=== PATIENT | female | born 1955 | race African-American/Black ===

== ENCOUNTER 2016-08-25 17:50 | Inpatient (IN) | payer MEDICAID, OTHER ==
[~2016-08-25] VITALS: Ht 165.1 cm; Wt 83.0 kg
[~2016-08-25 17:50] MED LIST: IOHEXOL-300 100 ML BOTTLE ONE; SODIUM CHLORIDE 0.9% 10ML VIAL ONE
[2016-08-25] MEDS ORDERED: LORA0.5T2 PO (17:56)
[2016-08-25] MEDS ORDERED: ONDANSETRON HCL 4MG/2ML VIAL IV STA (18:11)
[2016-08-25] MEDS ORDERED: SODIUM CHLORIDE 0.9% 1,000 ML IV ONE (18:11)
[2016-08-25] MEDS ORDERED: FAMOTIDINE 20MG/2ML VIAL IV STA (18:11)
[2016-08-25 19:09] LABS: BASOPHILS % 0.6 % (0.0-2.0); EOSINOPHILS % 0.1 % (0.0-5.0); HEMATOCRIT. 45.4 % (36.0-48.0); HEMOGLOBIN. 15.1 g/dL (12.0-16.0); LYMPHOCYTES % 26.5 % (20.0-50.0); MEAN CORPUSCULAR HEMOGLOBIN 28.4 pg (28.0-32.0); MEAN CORPUSCULAR VOLUME 85.8 fL (81.0-99.0); MEAN PLATELET VOLUME 7.2 fl (7.4-10.4); MONOCYTES % 5.6 % (2.0-8.0); NEUTROPHILS % 67.2 % (40.0-76.0); PLATELET 337 x1000/uL (130-400); RED CELL DISTRIBUTION WIDTH 13.9 % (11.6-14.6)
[2016-08-25 19:15] LABS: INR 1.1; PROTHROMBIN TIME 11.5 sec
[2016-08-25 19:24] LABS: CARBON DIOXIDE 29 mEq/L (21-32); CHLORIDE 102 mEq/L (98-107); TROPONIN I < 0.02 ng/mL (0.00-0.04)
[2016-08-25 19:40] LABS: CLARITY URINE CLEAR (CLEAR); COLOR URINE YELLOW (YELLOW); GLUCOSE URINE NEGATIVE (NEGATIVE); KETONES URINE NEGATIVE (NEGATIVE); LEUKOCYTE ESTERASE URINE NEGATIVE (NEGATIVE); NITRITE URINE NEGATIVE (NEGATIVE); OCCULT BLOOD URINE NEGATIVE (NEGATIVE); PROTEIN URINE NEGATIVE (NEGATIVE); SPECIFIC GRAVITY URINE 1.011 (1.005-1.030)
[2016-08-25] MEDS ORDERED: KETOROLAC 30MG/ML VIAL IV ONE (21:15)
[2016-08-25 22:45] VITALS: BP 120/86
[2016-08-25] MEDS ORDERED: LOSA1TAB33 PO (23:18)
[2016-08-25] MEDS ORDERED: CYCL5TAB PO (23:18)
[2016-08-25] MEDS ORDERED: AMLO10TA80 PO (23:18)
[2016-08-25] MEDS ORDERED: OMEP40CA34 PO (23:18)
[2016-08-25 23:23] VITALS: BP 120/86
[2016-08-26] VITALS: BP 123/84
[2016-08-26] MEDS ORDERED: ZOLPIDEM TARTRATE 5MG TABLET PO PRN (00:30)
[2016-08-26] MEDS ORDERED: HYDROCODONE/ACETAMINOPHEN 5/325MG TABLET PO PRN (00:30)
[2016-08-26] MEDS ORDERED: CLONIDINE 0.2MG TABLET PO PRN (00:30)
[2016-08-26] MEDS ORDERED: LORAZEPAM 0.5MG TABLET PO PRN (00:30)
[2016-08-26] MEDS: SODIUM CHLORIDE 0.45% 1,000 ML IV SCH ×3 (01:18→20:13)
[2016-08-26 03:43] LABS: BASOPHILS % 0.8 % (0.0-2.0); EOSINOPHILS % 0.5 % (0.0-5.0); HEMATOCRIT. 40.1 % (36.0-48.0); HEMOGLOBIN. 13.3 g/dL (12.0-16.0); LYMPHOCYTES % 34.6 % (20.0-50.0); MEAN CORPUSCULAR HEMOGLOBIN 28.4 pg (28.0-32.0); MEAN CORPUSCULAR VOLUME 85.5 fL (81.0-99.0); MEAN PLATELET VOLUME 7.2 fl (7.4-10.4); MONOCYTES % 9.4 % (2.0-8.0); NEUTROPHILS % 54.7 % (40.0-76.0); PLATELET 286 x1000/uL (130-400); RED BLOOD CELL COUNT 4.69 mill/uL (4.2-5.4); RED CELL DISTRIBUTION WIDTH 13.6 % (11.6-14.6)
[2016-08-26 03:51] LABS: CARBON DIOXIDE 27 mEq/L (21-32); CHLORIDE 105 mEq/L (98-107)
[2016-08-26 04:00] VITALS: BP 154/94
[2016-08-26] MEDS: HYDROMORPHONE HCL/PF 2MG/ML CPJ IV PRN ×5 (04:40→23:01)
[2016-08-26] MEDS: OMEPRAZOLE 20MG CAPSULE EXTENDED RELEASE PO SCH (05:52)
[2016-08-26] MEDS: CYCLOBENZAPRINE 10MG TABLET PO SCH ×2 (07:32→09:00)
[2016-08-26] MEDS: ONDANSETRON HCL 4MG/2ML VIAL IV PRN (07:36)
[2016-08-26 08:39] VITALS: BP 119/78
[2016-08-26] MEDS: ENOXAPARIN 30MG/0.3ML SYR SUBCUT SCH ×2 (09:00→20:13)
[2016-08-26] MEDS: ASPIRIN 81MG TABLET PO SCH (09:00)
[2016-08-26] MEDS: LOSARTAN POTASSIUM 100 MG TABLET PO SCH (09:00)
[2016-08-26] MEDS: AMLODIPINE 10MG TABLET PO SCH (09:00)
[2016-08-26] MEDS: HYDROCHLOROTHIAZIDE 12.5MG CAPSULE PO SCH (09:00)
[2016-08-26] MEDS ORDERED: MEDICATION NOT ON FORMULARY EA (Cyclobenzaprine Hcl 10 MG) PO SCH (09:00)
[2016-08-26] MEDS ORDERED: MEDICATION NOT ON FORMULARY EA (Omeprazole 1 CAP) PO SCH (09:00)
[2016-08-26 12:00] VITALS: BP 126/96
[2016-08-26] MEDS ORDERED: PANTOPRAZOLE SODIUM 40 MG/VIAL IV SCH (12:30)
[2016-08-26 16:24] VITALS: BP 111/76
[2016-08-26] MEDS: POTASSIUM CHLORIDE 20MEQ/PACKET PO NR ×2 (19:15→20:12)
[2016-08-26 20:00] VITALS: BP 106/75
[2016-08-27] VITALS: BP 97/64
[2016-08-27] MEDS: SODIUM CHLORIDE 0.45% 1,000 ML IV SCH ×2 (03:07→16:53)
[2016-08-27] MEDS: HYDROMORPHONE HCL/PF 2MG/ML CPJ IV PRN ×5 (03:38→21:53)
[2016-08-27 04:00] VITALS: BP 147/97
[2016-08-27] MEDS: OMEPRAZOLE 20MG CAPSULE EXTENDED RELEASE PO SCH (05:38)
[2016-08-27 06:11] LABS: BASOPHILS % 0.8 % (0.0-2.0); EOSINOPHILS % 0.5 % (0.0-5.0); HEMOGLOBIN. 13.4 g/dL (12.0-16.0); LYMPHOCYTES % 25.7 % (20.0-50.0); MEAN CORPUSCULAR HEMOGLOBIN 28.7 pg (28.0-32.0); MEAN CORPUSCULAR VOLUME 85.8 fL (81.0-99.0); MEAN PLATELET VOLUME 7.4 fl (7.4-10.4); MONOCYTES % 10.3 % (2.0-8.0); NEUTROPHILS % 62.7 % (40.0-76.0); PLATELET 275 x1000/uL (130-400); RED BLOOD CELL COUNT 4.67 mill/uL (4.2-5.4); RED CELL DISTRIBUTION WIDTH 13.6 % (11.6-14.6)
[2016-08-27 06:37] LABS: CARBON DIOXIDE 26 mEq/L (21-32); CHLORIDE 103 mEq/L (98-107)
[2016-08-27 08:00] VITALS: BP 121/85
[2016-08-27] MEDS ORDERED: POTASSIUM CHLORIDE 20MEQ TABLET SR PO NR ×2 (08:50→09:30)
[2016-08-27] MEDS: CYCLOBENZAPRINE 10MG TABLET PO SCH (09:00)
[2016-08-27] MEDS: ENOXAPARIN 30MG/0.3ML SYR SUBCUT SCH ×2 (09:00→21:00)
[2016-08-27] MEDS: LOSARTAN POTASSIUM 100 MG TABLET PO SCH (09:00)
[2016-08-27] MEDS: AMLODIPINE 10MG TABLET PO SCH (09:00)
[2016-08-27] MEDS: HYDROCHLOROTHIAZIDE 12.5MG CAPSULE PO SCH (09:00)
[2016-08-27] MEDS: ASPIRIN 81MG TABLET PO SCH (09:20)
[2016-08-27] MEDS: ONDANSETRON HCL 4MG/2ML VIAL IV PRN (09:21)
[2016-08-27] MEDS ORDERED: AMLO10TA80 PO (11:43)
[2016-08-27 12:00] VITALS: BP 113/84
[2016-08-27 20:00] VITALS: BP 121/78
[2016-08-28] VITALS: BP 141/92
[2016-08-28] MEDS: HYDROMORPHONE HCL/PF 2MG/ML CPJ IV PRN ×6 (02:55→23:23)
[2016-08-28] MEDS: SODIUM CHLORIDE 0.45% 1,000 ML IV SCH ×3 (03:02→23:00)
[2016-08-28 04:00] VITALS: BP 113/81
[2016-08-28] MEDS: OMEPRAZOLE 20MG CAPSULE EXTENDED RELEASE PO SCH (05:53)
[2016-08-28] MEDS: ACETAMINOPHEN 325MG TABLET PO PRN (05:53)
[2016-08-28 06:52] LABS: BASOPHILS % 0.4 % (0.0-2.0); EOSINOPHILS % 0.3 % (0.0-5.0); HEMOGLOBIN. 13.1 g/dL (12.0-16.0); LYMPHOCYTES % 20.8 % (20.0-50.0); MEAN CORPUSCULAR HEMOGLOBIN 28.6 pg (28.0-32.0); MEAN CORPUSCULAR VOLUME 84.7 fL (81.0-99.0); MEAN PLATELET VOLUME 7.6 fl (7.4-10.4); MONOCYTES % 11.7 % (2.0-8.0); NEUTROPHILS % 66.8 % (40.0-76.0); PLATELET 283 x1000/uL (130-400); RED CELL DISTRIBUTION WIDTH 13.4 % (11.6-14.6)
[2016-08-28 07:26] LABS: CARBON DIOXIDE 25 mEq/L (21-32); CHLORIDE 101 mEq/L (98-107)
[2016-08-28 08:00] VITALS: BP 128/88
[2016-08-28] MEDS: AMLODIPINE 10MG TABLET PO SCH (09:00)
[2016-08-28] MEDS: ENOXAPARIN 30MG/0.3ML SYR SUBCUT SCH (09:00)
[2016-08-28] MEDS: CYCLOBENZAPRINE 10MG TABLET PO SCH (09:00)
[2016-08-28] MEDS: LOSARTAN POTASSIUM 100 MG TABLET PO SCH (09:00)
[2016-08-28] MEDS: HYDROCHLOROTHIAZIDE 12.5MG CAPSULE PO SCH (09:00)
[2016-08-28] MEDS: ASPIRIN 81MG TABLET PO SCH (09:27)
[2016-08-28] MEDS: METRONIDAZOLE 500 MG PREMIX 100 ML IV SCH ×2 (10:38→18:40)
[2016-08-28] MEDS: LEVOFLOXACIN 500MG PREMIX 100 ML IV SCH (11:47)
[2016-08-28 12:00] VITALS: BP 110/64
[2016-08-28 16:00] VITALS: BP 120/79
[2016-08-28 20:45] VITALS: BP 121/81
[2016-08-29] VITALS (8 sets, daily range): BP systolic 106–168; BP diastolic 71–95
[2016-08-29] MEDS: METRONIDAZOLE 500 MG PREMIX 100 ML IV SCH ×3 (01:33→17:12)
[2016-08-29] MEDS: HYDROMORPHONE HCL/PF 2MG/ML CPJ IV PRN ×5 (03:30→21:13)
[2016-08-29] MEDS: OMEPRAZOLE 20MG CAPSULE EXTENDED RELEASE PO SCH (06:11)
[2016-08-29] MEDS: SODIUM CHLORIDE 0.45% 1,000 ML IV SCH ×2 (06:20→18:31)
[2016-08-29] MEDS: CYCLOBENZAPRINE 10MG TABLET PO SCH (08:11)
[2016-08-29] MEDS: ASPIRIN 81MG TABLET PO SCH (08:11)
[2016-08-29] MEDS: LOSARTAN POTASSIUM 100 MG TABLET PO SCH (08:11)
[2016-08-29] MEDS: HYDROCHLOROTHIAZIDE 12.5MG CAPSULE PO SCH (08:12)
[2016-08-29] MEDS: AMLODIPINE 10MG TABLET PO SCH (08:12)
[2016-08-29] MEDS: ENOXAPARIN 40MG/0.4ML SYR SUBCUT SCH (08:12)
[2016-08-29] MEDS: LEVOFLOXACIN 500MG PREMIX 100 ML IV SCH (11:26)
[2016-08-30] MEDS: METRONIDAZOLE 500 MG PREMIX 100 ML IV SCH ×3 (02:08→18:05)
[2016-08-30] MEDS: HYDROMORPHONE HCL/PF 2MG/ML CPJ IV PRN ×5 (02:09→23:59)
[2016-08-30 04:00] VITALS: BP 128/81
[2016-08-30] MEDS: OMEPRAZOLE 20MG CAPSULE EXTENDED RELEASE PO SCH (06:15)
[2016-08-30] MEDS: SODIUM CHLORIDE 0.45% 1,000 ML IV SCH (08:01)
[2016-08-30 08:26] VITALS: BP 115/72
[2016-08-30] MEDS: ASPIRIN 81MG TABLET PO SCH (09:00)
[2016-08-30] MEDS: ENOXAPARIN 40MG/0.4ML SYR SUBCUT SCH (09:00)
[2016-08-30] MEDS: HYDROCHLOROTHIAZIDE 12.5MG CAPSULE PO SCH (09:00)
[2016-08-30] MEDS: CYCLOBENZAPRINE 10MG TABLET PO SCH (09:00)
[2016-08-30] MEDS: LOSARTAN POTASSIUM 100 MG TABLET PO SCH (09:00)
[2016-08-30] MEDS: AMLODIPINE 10MG TABLET PO SCH (09:00)
[2016-08-30] MEDS ORDERED: DIATR MEGLU/DIATRIZOATE SOLN 30ML ONE (12:51)
[2016-08-30] MEDS: ONDANSETRON HCL 4MG/2ML VIAL IV PRN (15:46)
[2016-08-30] MEDS: LEVOFLOXACIN 500MG PREMIX 100 ML IV SCH (15:50)
[2016-08-30 16:40] VITALS: BP 138/75
[2016-08-30 20:00] VITALS: BP 126/83
[2016-08-30] MEDS: ACETAMINOPHEN 325MG TABLET PO PRN (23:51)
[2016-08-31] VITALS: BP 127/86
[2016-08-31] MEDS: METRONIDAZOLE 500 MG PREMIX 100 ML IV SCH (01:20)
[2016-08-31] MEDS: SODIUM CHLORIDE 0.45% 1,000 ML IV SCH (01:21)
[2016-08-31 04:00] VITALS: BP 124/86
[2016-08-31] MEDS ORDERED: LACTULOSE 20G/30ML UDC PO NR (06:00)
[2016-08-31 06:14] VITALS: BP 138/88
[2016-08-31] MEDS: OMEPRAZOLE 20MG CAPSULE EXTENDED RELEASE PO SCH (06:45)
[2016-08-31 08:00] VITALS: BP 134/88
[2016-08-31] MEDS: ASPIRIN 81MG TABLET PO SCH (08:54)
[2016-08-31] MEDS: LOSARTAN POTASSIUM 100 MG TABLET PO SCH (08:55)
[2016-08-31] MEDS: HYDROCHLOROTHIAZIDE 12.5MG CAPSULE PO SCH (08:55)
[2016-08-31] MEDS: AMLODIPINE 10MG TABLET PO SCH (08:55)
[2016-08-31] MEDS: CYCLOBENZAPRINE 10MG TABLET PO SCH (08:55)
[2016-08-31] MEDS: ENOXAPARIN 40MG/0.4ML SYR SUBCUT SCH (08:56)
== END 2016-08-31 09:15 | disposition home or self-care (01) ==
LOC: ER 17:55 → 5WST 21:34
PROVIDERS: ADMIT Internal Medicine; ATTEND Internal Medicine
DX: K80.42 Calculus of bile duct with acute cholecystitis without obstruction (principal); I11.9 Hypertensive heart disease without heart failure; E78.5 Hyperlipidemia, unspecified; K21.9 Gastro-esophageal reflux disease without esophagitis; K82.8 Other specified diseases of gallbladder; K57.90 Diverticulosis of intestine, part unspecified, without perforation or abscess without bleeding; E87.6 Hypokalemia; F17.200 Nicotine dependence, unspecified, uncomplicated; M48.00 Spinal stenosis, site unspecified; R47.02 Dysphasia; Z76.5 Malingerer [conscious simulation]; Z79.891 Long term (current) use of opiate analgesic; Z82.49 Family history of ischemic heart disease and other diseases of the circulatory system; Z90.710 Acquired absence of both cervix and uterus; Z87.442 Personal history of urinary calculi
CPT/HCPCS: 36415; 71010; 74177; 74250; 76700; 78227; 80048; 80053; 81003; 81025; 83605; 83690; 83735; 83880; 84484; 85025; 85610; 93005; 96374; 96375; 99285; 99406; A4216; A9537; C9113; J1170; J1650; J1885; J1956; J2405; J3490; J7030; Q9963; Q9967